=== PATIENT | male | born 1995 ===

== ENCOUNTER 2023-05-10 14:30 | Emergency (ER) | payer MEDICAID ==
[~2023-05-10] VITALS: Ht 177.8 cm; Wt 81.8 kg
[2023-05-10 14:37] VITALS: TEMP 99.1
[2023-05-10 15:17] LABS: COVID AG,FIA SOURCE NASAL SWAB
[2023-05-10 15:35] LABS: SARS-COV2 (COVID) ANTIGEN,FIA Negative (Negative)
[2023-05-10 15:45] LABS: INFLUENZA TYPE A NEGATIVE FOR TYPE A (NEGATIVE); INFLUENZA TYPE B POSITIVE FOR TYPE B (NEGATIVE)
[2023-05-10 16:32] VITALS: BP 126/87; PULSE 87; RESP 16
[2023-05-10] MEDS: IBUPROFEN 400 MG TABLET PO ONE (16:33)
== END 2023-05-10 16:30 | disposition still patient (30) ==
LOC: EMS 14:30
DX: J10.1 Influenza due to other identified influenza virus with other respiratory manifestations (principal); Z20.822 Contact with and (suspected) exposure to COVID-19
CPT/HCPCS: 87804; 99283